=== PATIENT | female | born 1975 | race Two or more races ===

== ENCOUNTER 2024-08-08 08:57 | Emergency (ER) | payer OTHER ==
[~2024-08-08] VITALS: Ht 162.6 cm; Wt 77.1 kg
[2024-08-08 10:11] VITALS: BP 143/92; O2SAT 98
[2024-08-08] MEDS ORDERED: VENLAFAXINE H37.5 M2 PO (10:15)
[2024-08-08] MEDS ORDERED: VIVITROL380 MG IM (10:16)
[2024-08-08] MEDS ORDERED: ZESTRIL5 MG PO (10:16)
[2024-08-08] MEDS ORDERED: EZALLOR SPRINKL10 MG PO (10:16)
[2024-08-08] MEDS ORDERED: HYDRODIURIL12.5 MG PO (10:16)
[2024-08-08] MEDS ORDERED: ACETAMINOPHEN 500 MG GEL..CAP PO ONE (10:30)
[2024-08-08] MEDS ORDERED: ORPHENADRINE CITRATE 30 MG/ML AMPUL IM ONE (10:30)
[2024-08-08 10:35] LABS: HEMATOCRIT 39.4 % (36.0-45.00); MEAN CELL VOLUME 90.8 fL (80.00-100.00); MEAN CORPUSCULAR HEMOGLOBIN 32.1 pg (27.00-32.0); MEAN CORPUSCULAR HGB CONC 35.4 g/dl (32.0-36.0); PLATELET COUNT 500 K/uL (150-450); RED BLOOD COUNT 4.34 M/uL (4.00-6.00); RED CELL DISTRIBUTION WIDTH 13.6 % (11.5-14.5)
[2024-08-08] MEDS ORDERED: BUTALBIT-ACETA1 EACH PO (10:49)
[2024-08-08] MEDS ORDERED: BUTALB/ACETAMINOPHEN/CAFFEINE 1 TAB TABLET PO ONE (11:00)
== END 2024-08-08 10:55 | disposition home or self-care (01) ==
LOC: ER 08:59
PROVIDERS: General Practice
DX: R51.9 Headache, unspecified (principal); R53.81 Other malaise; I10 Essential (primary) hypertension; Z91.018 Allergy to other foods